=== PATIENT | male | born 1960 | race Caucasian/White ===

== ENCOUNTER 2016-06-24 20:00 | Inpatient (IN) | payer OTHER ==
[~2016-06-24] VITALS: Ht 180.3 cm; Wt 106.5 kg
--- NOTE | ~2016-06-24 | ECH ---
Transthoracic Echocardiography Report (TTE) Demographics Patient Name REBA GUZMAN Date of Study 06/25/2016 Patient Number [id number] Visit Number [id number] Date of 1960 Room Number 411 Accession Number [id number] Gender Male Age 55 year(s) Referring Neil RIVERA Law Tutor Elyssa Chen [facility] Physician Virgilio Physician Interpreting Ammy Bajwa Assistant Laboratory Director Physician Supervising Ordering Physician Neil Poole MD/P Nurse Stress Costumer Assistant Conclusions Contractility Score Summary Normal Left Ventricular contractility was noted. Summary Technically adequate exam. The estimated left ventricular ejection fraction is 60%. Mild concentric left ventricular hypertrophy. Diastolic assessment reveals Grade I diastolic dysfunction. The ascending aorta appears mildly dilated. The maximum diameter measures 4.2 cm. No significant valvular abnormalities. Procedure Type of Study TTE procedure:Echo Complete SF. Procedure Date Date: 06/25/2016 Start: 08:40 AM Technical Quality: Adequate visualization Indications:Hypertension. Additional Indications:NSTEMI Appropriate Use Criteria: 9 Height: 71 inches Weight: 238 pounds BSA: 2.27 m Rhythm: NSR HR: 82 bpm BP: 130/94 mmHg Allergies - No known allergies. M-Mode/2D Measurements LV Diastolic Dimension: 4.35 cm LV Systolic Dimension: 2.85 cm LV Septum Diastolic: 1.16 cm LV PW Diastolic: 1.14 cm AO Root Dimension: 3.65 cm Cardiac Output: 5.63 l/min LA Dimension: 3.38 cm Cardiac Index: 2.48 l/min*m RV Diastolic Dimension: 3.78 cm LA volume index: 15 ml/m LVOT: 2.26 cm LVOT VTI: 17.12 cm RV Base: 2.9 cm LV Stroke volume: 68.64 ml RV Mid: 1.6 cm LV Stroke volume index: 30.24 ml/m TAPSE: 2.4 cm TDI-S': 14 cm/s Doppler Measurements AV Peak Velocity: 1.1 m/s MV Peak E-Wave: 0.41 m/s AV Peak Gradient: 4.84 mmHg MV Peak A-Wave: 0.59 m/s AV Mean Gradient: 2.82 mmHg MV E/A Ratio: 0.7 LVOT Peak Velocity: 0.93 m/s MV P1/2t: 98.1 msec AV Area (Continuity):3.51 cm MV Deceleration Time: 364.7 msec MV Area (PHT): 2.24 cm PV Peak Velocity: 1.16 m/s E' Septal Velocity: 0.06 m/s PV Peak Gradient: 5.39 mmHg E' Lateral Velocity: 0.07 m/s A' Septal Velocity: 0.1 m/s A' Lateral Velocity: 0.1 m/s RA Area: 12.82 cm Findings Left Ventricle The left ventricle is normal in size . Mild concentric left ventricular hypertrophy. Diastolic assessment reveals Grade I diastolic dysfunction. Right Ventricle Normal right ventricle structure and function. Left Atrium Normal left atrial size. Right Atrium Normal right atrial size. Mitral Valve Normal mitral valve structure and function. Trivial mitral regurgitation by color Doppler. Aortic Valve Normal aortic valve structure and function. Tricuspid Valve Normal tricuspid valve structure and function. Trivial tricuspid regurgitation by color Doppler. Insufficient jet to calculate pulmonary pressures. Pulmonic Valve Normal pulmonic valve structure and function. Pericardial Effusion No evidence of pericardial effusion. Miscellaneous The ascending aorta appears mildly dilated. The maximum diameter measures 4.2 cm. Pleural Effusion No evidence of pleural effusion. Contractility Score LV regional wall motion:(0-Non visualized 1-Normal 2-Hypokinesis 3-Akinesis 4-Dyskinesis 5-Aneurysm) Signature
--- NOTE | ~2016-06-24 | CATH ---
Cardiac Diagnostic + PCI Report Demographics Patient Name MEGAN Preston Gender Male Date of 1960 Age 55 year(s) Patient Number [id number] Date of Study 06/25/2016 Visit Number [id number] Room Number 411 Corporate ID Ht 180.34 cm Wt 107.95 kg Accession Number [id number] BSA 2.27 m kg/m Referring Paulie Prado Primary Physician Physician Ammy Bajwa MD Performing Ammy Yong R Secondary Physician Physician Diagnostic Fruehling Yong R Assisting Physician Physician Interventional Fruehling Yong R Physician Order Entry Specialist Physician MD Findings and Conclusions Diagnostic Findings and Conclusion Single vessel CAD -95%, thrombotic prox LAD with PENNY II flow -70% Mid LAD Normal Circ and RCA Diagnostic Recommendations Proceed with PCI of LAD Interventional Findings and Conclusion -Successful atherectomy and stenting of prox LAD with a 3.5 x 12mm Synergy SERENA to 0% residual and restorationist of PENNY III flow. -iFR of mid LAD = 0.89 Interventional Recommendations -Dual Anti-Platelet Therapy for at least 1 year. -Aggressive risk factor modification -Consider a stress test in the future to evaluate residual LAD disease. Procedure Description The patient was brought to the diagnostic cardiac catheterization laboratory in the fasting, non-sedated state. Informed consent was obtained in the written and verbal form after the risks and benefits were explained. The patient had no further questions and agreed to proceed. The planned puncture-incision site(s) were shaved and prepped with ChloraPrep and draped in the usual sterile manner. Conscious sedation, supplemental oxygen, and pain control medications were delivered by a registered nurse under physician guidance. Surface ECG rhythm, blood pressure measurement, and pulse oximetry were monitored throughout the procedure. Arterial access. The right radial access site was infiltrated with lidocaine. The vessel was entered with the Seldinger technique. A 6 Fr sheath was advanced into the vessel and used for catheter placement. Left heart catheterization. A FR4 catheter was advanced across the aortic valve to the left ventricle under fluoroscopic guidance. Resting hemodynamics were obtained. Selective left coronary angiography. A FL3.5 catheter was advanced into the left coronary vessel ostium under Fluoroscopic guidance. Contrast was injected by hand. Images were obtained in multiple projections. Selective right coronary angiography. Multiple catheters were attempted, including FR4, MPB2, and AL1. Finally, a Ultimate 1 catheter was advanced into the right coronary vessel ostium under fluoroscopic guidance. Contrast was injected by hand. Images were obtained in multiple projections. Arterial artery hemostasis was achieved. The patient was transferred to a regular nursing floor via cart accompanied by a nurse. The patient left the laboratory in stable condition. Diagnostic Cath Status: Urgent Interventional Cath Status: Urgent Procedure Procedure Type Diagnostic procedure:Angiography:, Coronary Angios /[facility] PCI procedure:Drug Eluting Coronary Stent:, LAD, Thrombectomy-Mechanical , Additional Imaging:, FFR/iFR:, Initial Vessel Indications: NSTEMI. The procedure was explained in detail to the patient. Risks, complications and alternative treatments were reviewed. Written consent was obtained. Medications Reviewed with Patient prior to Procedure. Complications: No Complication. Angiographic Findings Dominance: Right Cardiac Arteries and Lesion Findings LMCA: Normal (0% Stenosis). LAD: Abnormal. Lesion on Prox LAD: 95% stenosis 12 mm length reduced to 0%. Pre procedure PENNY II flow was noted. Post Procedure PENNY III flow was present. The guidewire cross was successful.The lesion showed evidence of thrombus presence.Culprit lesion. FFR + + + + !FFR !Stage/Medication !Dosage ! + + + + !0.89 ! ! ! + + + + Treatment results:Interventional treatment was successful. Devices used - PROWATER WIRE 0.014" X 180CM. Number of passes: 1. - CATH STENT SYNERGY 3.5 X 12. 1 inflation(s) to a max pressure of: 16 abby. Lesion on Mid LAD: 75% stenosis . Devices used - VERRATA. Number of passes: 1. LCx: Abnormal. Lesion on Prox CX: 30% stenosis . Lesion on 2nd Ob Laney: Mid subsection.40% stenosis . RCA: Normal (0% Stenosis). Coronary Tree Procedure Data Procedure Date Date: 06/25/2016Start: 09:34 AMEnd: 10:58 AM Entry Locations - Percutaneous access was performed through the Right Radial artery (Primary location). A 6 Fr sheath was inserted. Hemostasis was successfully obtained using a TR band. Closure Comments: 12 cc air in TR Band. Procedure Medications Order and Administration + + +---------+-------+ !Time !Medication !Dosage !Route ! + + +---------+-------+ !06/25/2016 !Fentanyl !25 mcg !I.V. ! !09:24 AM ! ! ! ! + + +---------+-------+ !06/25/2016 !Versed !1 mg !I.V. ! !09:24 AM ! ! ! ! + + +---------+-------+ 06/25/2016 !Oxygen !2 l/min !NC ! !09:29 AM ! ! ! ! + + +---------+-------+ !06/25/2016 !Fentanyl !25 mcg !I.V. ! !09:33 AM ! ! ! ! + + +---------+-------+ !06/25/2016 !Versed !1 mg !I.V. ! !09:33 AM ! ! ! ! + + +---------+-------+ !06/25/2016 !SF Radial Cocktail: 200mcg Nitro, 2.5 mg! !I.A. ! !09:38 AM !Verapamil, 5000u Heparin ! ! ! + + +---------+-------+ !06/25/2016 !Heparin (ACC_3) !3000 !I.V. ! !10:11 AM ! !units ! ! + + +---------+-------+ !06/25/2016 !Brilinta (Ticagrelor) (ACC_20) !180 mg !P.O. ! !10:12 AM ! ! ! ! + + +---------+-------+ !06/25/2016 !Heparin (ACC_3) !2000 !I.V. ! !10:31 AM ! !units ! ! + + +---------+-------+ !06/25/2016 !SF Post Radial Cocktail: 200mcg Nitro, ! !I.A. ! !10:43 AM !2.5 Verapamil ! ! ! + + +---------+-------+ !06/25/2016 !Sodium Chloride !10 ml !I.V. ! !12:17 PM ! ! ! ! + + +---------+-------+ Devices Used - ACATH 6F FR4 CATHETER 100CMwas used for:Right coronary angiography.Unable to cannulate the vessel. - A5F MPB2 diagnostic catheterwas used for:Right coronary angiography.Unable to cannulate the vessel. - ACATH 6FR FL3.5 CATHETER 100CMwas used for:Left coronary angiography. - ACATH 6FR AL1 CATHETER 100CMwas used for:Right coronary angiography.Unable to cannulate the vessel. - ACATH 6F ULTIMATE 1 CATHETERwas used for:Right coronary angiography. - AGUIDE CATHETER 6FR EBU 3.5 100CMwas used for:LAD Intervention. - AASAP ASPIRATION CATHETERwas used for:LAD Intervention. - ACATH 6F FR4 CATHETER 100CMwas used for:LV Pressures.Unable to cannulate the vessel. Contrast Material - Isovue [id number] ml - Isovue 79468 ml Fluoroscopy Time: Diagnostic: 19:00 minutes. Total: 19:00 minutes. Fluoroscopy Dose: Diagnostic: 2040 mGy. Total: 2040 mGy. Estimated Blood Loss: 20 ml. Medical History Allergies - No known allergies. Risk Factors The patient risk factors include:hypertension, family history of premature CAD, last creatinine: 1.3 mg/dl and creatinine clearance: 96.88 ml/min. Admission Data Admission Date: 06/24/2016 Admission Time: 08:00 PM Insurance Payors: None. Clinical Evaluation Leading to Procedure Diagnosed on 06/25/2016 07:45 AM. - The patient's CAD presentation was assessed as: Non-STEMI. - The patient's anginal syndrome during the past two weeks was assessed as: Class IV according to the [place] Cardi[employer] Classification System (CCS). Hemodynamics Condition: Rest O2 Consumption: Estimated: 277.12Heart Rate: 80 bpm Pressures (mmHg) +-----+ + !Site !Pressure ! +-----+ + !AO !89/64 (74) ! +-----+ + !LV !95/1 ,6 ! +-----+ + !AO !96/ (79) ! +-----+ + !LV !91/1 ,7 ! +-----+ + Valve Gradients and Areas + +---------+---------+---------+ +---------+ + !Valve !Peak !Mean !Area !Index !Flow !Source ! + +---------+---------+---------+ +---------+ + !Aortic !0 !0 ! ! ! ! ! + +---------+---------+---------+ +---------+ + !Aortic !0 !0 ! ! ! ! ! + +---------+---------+---------+ +---------+ + Shunts Oxygen Values O2 Capacity 209.44 O2 Consumption 277.12 Discharge Data Discharge Date: 06/26/2016 Hospital Status: Inpatient Signatures
--- NOTE | ~2016-06-24 | LETTER ---
ADMIT: 06/24/2016 RM/LOC: 411 [facility] MR#: [id number] [address] [place] [phone] MAE HARRIS [address] [place] [address] Letter SEX: M AGE: 55 : 1960 June 25, 2016 Zackary Wilson MD [address] [place] [phone] Re: MAE HARRIS Dear Shiva, Your patient, Mae Harris, underwent diagnostic left heart catheterization at [facility] today. As you recall yesterday, he presented with some mild chest discomfort. He really minimizes symptoms, but his cardiac biomarkers came back positive with, I believe, a troponin of 5. I got called by Johan late yesterday afternoon and he was transferred to [facility]. He was completely pain free and hemodynamically stable. His echo this morning shows preserved ejection fraction. We proceeded with coronary angiography this morning. He has single-vessel disease and he had a 95% very thrombotic stenosis of the proximal LAD with resultant PENNY-2 flow. There was moderate to severe disease in the mid portion up to 60% to 70%. We actually performed atherectomy of the proximal LAD and then I placed a 3.5 x 12 mm Synergy (drug-eluting stent) in the proximal LAD with no residual stenosis and druze of PENNY-3 flow. We also performed an IFR of the mid LAD to make sure that it was not hemodynamically significant. It was 0.89, which is right on the borderline, but given his age and the fact that we fixed the culprit, I decided not to ADMIT: 06/24/2016 RM/LOC: 411 [facility] MR#: [id number] [address] [place] [phone] MAE HARRIS [address] [place] [address] Letter SEX: M AGE: 55 : 1960 treat the mid portion. We will watch it over time. If all goes well, he will be discharged home tomorrow. He should remain on Brilinta and aspirin at least for the next year, and we will institute aggressive risk factor modification. If you have any questions or concerns, please do not hesitate to contact me. Sincerely, MD CARMELINA Farris/lucho /[id number] Johan Apodaca PA-C
--- NOTE | ~2016-06-24 | FD ---
ADMIT: 06/24/2016 RM/LOC: 411 [facility] MR#: [id number] [address] [phone] REBA GUZMAN [address] [place] [address] Final Diagnosis SEX: M AGE: 55 : 1960 ADMISSION DATE: 06/24/2016 DISCHARGE DATE: 06/26/2016 FINAL DIAGNOSES: 1. Non-ST elevated myocardial infarction. 2. Possible hypertension. 3. Premature family history of coronary artery disease. 4. Single-vessel coronary artery disease with 95% thrombotic proximal LAD with PENNY-2 flow and 60-70% mid LAD stenosis. 5. Status post successful atherectomy and stenting of the proximal LAD with a 3.5 x 12 mm Synergy stent to 0% residual and tenriism of PENNY-3 flow. FFR of the mid LAD of 0.89. Ongoing medical management recommended. 6. Preserved ejection fraction. PAO Foster / Yong Gimenez MD / modl JOB #: [id number] CC: Virgilio Trejo MD, Attending Physician Virgilio Trejo MD, Family Physician
--- NOTE | 2016-06-26 08:50 | HP ---
ADMIT: 06/24/2016 RM/LOC: 411 [facility] MR#: [id number] 26[address] [facility] [address] [place] [phone] MAE GUZMAN [address] [place] [address] History and Physical SEX: M AGE: 55 : 1960 DATE OF SERVICE: REASON FOR ADMISSION: Chest discomfort and elevated cardiac biomarkers. HISTORY OF PRESENT ILLNESS: Mae is a very nice, 55-year-old gentleman with no prior cardiac history. He was transferred last night from [place], after he had some chest discomfort yesterday morning and he was found to have elevated cardiac biomarkers. His only real cardiac risk factors are strong family history of premature coronary disease. His father at age 73 of a myocardial infarction, but he also had a brother at age 58 who of a massive IN. He denies ever being treated for hyperlipidemia or diabetes. He is a nonsmoker. He said he was just started on some blood pressure medications yesterday. He was feeling well until yesterday morning. He said he was in his usual state of health when he had just gotten out of the shower getting ready for the day when he began to have an odd sensation in his lower chest. He said he thought that it was his esophagus. He said it almost felt like he had a pill stuck in his lower esophagus. It was mild. There was no radiation of the discomfort and he denies any associated symptoms such as nausea, diaphoresis, or shortness of breath. He got dressed and went to work. 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 After a few minutes of work he said that he continued to have this discomfort in his chest, so went to the clinic at [place]. He was little hypertensive and started on valsartan and Norvasc. He was discharged, but they did draw lab work and his CKs and MB and troponin were all positive. His troponin was 5. He was called back later in the day to the emergency room and then transferred to [place]. He remains pain free. He is comfortable. He offers no complaints currently. ALLERGIES: THERE ARE NO KNOWN MEDICAL ALLERGIES. PAST MEDICAL HISTORY: Only illness is possible hypertension, but he was just started on medications yesterday. PAST SURGICAL HISTORY: He denies any surgical history. FAMILY HISTORY: His brother at age 58 of an IN and his dad had an IN at age 73. His mom at age 85, but he is not sure of the exact cause. No family history of diabetes, cancer, or strokes. SOCIAL HISTORY: He is . He does not have children. 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 He has never smoked. He drinks 4-5 alcoholic beverages 4-5 times a week. Drinks one soda a day. He does not follow a special diet. REVIEW OF SYSTEMS: GENERAL: Denies fever, chills, sweats, rash, or weight loss. He tires easily. ADMIT: 06/24/2016 RM/LOC: 411 [facility] MR#: [id number] [address] [phone] [place] [address] History and Physical SEX: M AGE: 55 : 1960 EYES: Denies double vision, blurred vision, cataracts, or glaucoma. ENT: Denies hearing loss or problems with nose, mouth or throat. PULMONARY: Denies cough, sputum production, asthma, emphysema or bronchitis. Denies fatigue upon awakening. Positive for snoring loudly, waking more than once a night. GASTROINTESTINAL: Denies heartburn or difficulty swallowing. No change in bowel habits. Denies dark or bloody stools. No history of ulcers, hiatal hernia, or gallbladder or liver disease. GENITOURINARY: Denies dysuria, hematuria, nocturia, urinary tract infection, or kidney stones. Denies history of renal insufficiency or failure. MUSCULOSKELETAL: Denies history of arthritis or gout. Denies muscle or joint pains. ENDOCRINE: Denies history of thyroid dysfunction or diabetes. HEMATOLOGIC: Denies history of anemia, easy bruising, or cancer. NEUROLOGIC: Denies chronic headaches, dizziness, syncope, stroke, seizures or numbness or tingling. PSYCHIATRIC: Denies history of mental illness or feelings of depression. PHYSICAL EXAMINATION: VITAL SIGNS: His blood pressure is 130/94, pulse is 68, respirations 16. He is afebrile. O2 sats are 97% on room air. SKIN: Hissop, warm and dry. EYES: Sclerae clear. No xanthelasmas. ENT: Oral mucosa is pink and moist. No jugular venous distention or carotid bruits. CHEST: Respirations are even and unlabored. Lungs are clear to auscultation. HEART: Regular rate and rhythm. Normal S1, S2. No murmurs, rubs or gallops. Little bit distant. ABDOMEN: Soft and nontender. Obese and mildly protuberant with a small umbilical hernia. MUSCULOSKELETAL: Gait is normal. EXTREMITIES: Peripheral pulses palpable. No clubbing, cyanosis or edema. PSYCHIATRIC: Alert and oriented. Mood and affect are appropriate. LABORATORY AND X-RAY DATA: A 12-lead EKG shows sinus rhythm with nonspecific ST changes. There is no ST elevation, and no obvious ischemic EKG changes. Sodium 140, potassium 3.9, BUN 19, creatinine 1.3. Glucose is 101. Total cholesterol 195, triglycerides 159, HDL is 55, and LDL is 108. His troponin is 6.75 this morning. White count is 8.3 with a hemoglobin of 15.4 and platelet count 276,000. ASSESSMENT: 1. Non ST elevation - acute coronary syndrome. 2. Possible hypertension. 3. Premature family history of coronary disease. RECOMMENDATIONS: Although his symptoms are a bit atypical and completely resolved, he has high risk features with his positive cardiac biomarkers. ADMIT: 06/24/2016 RM/LOC: [address] [place] [address] MR#: [id number] 2620 [facility] [address] [place] [phone] MAE GUZMAN [address] [place] [address] History and Physical SEX: M AGE: 55 : 1960 Ultimately, I recommended left heart catheterization and coronary angiography for definitive evaluation. I did discuss the procedure with him including the potential risk and benefits. Potential risks including, but not limited to, bleeding or vascular trauma, IN, CVA, renal failure, and even a small possibility of . We will do an echo this morning to assess his LV function. He has been started on appropriate medications including his IV heparin, aspirin, statin, and beta-soniya therapy. He is hemodynamically stable currently. We will plan on proceeding with his heart catheterization later this morning. Yong Gimenez MD/ lucho JOB #: [id number] CC: Virgilio Trejo, Attending Physician Virgilio Trejo, Family Physician NACHO Chavez MD
[2016-06-27] MEDS ORDERED: ASA CHILDREN'S81 MG PO (09:23)
[2016-06-27] MEDS ORDERED: BRILINTA90 MG PO (09:23)
[2016-06-27] MEDS ORDERED: DIOVAN160 MG PO (09:24)
[2016-06-27] MEDS ORDERED: COREG DPS6.25 MG PO (09:24)
[2016-06-27] MEDS ORDERED: LIPITOR DPS40 MG PO (09:24)
== END 2016-06-26 11:43 | disposition home or self-care (01) | DRG 247 ==
LOC: 4PCU 20:00
PROVIDERS: ADMIT Internal Medicine
DX: I21.4 Non-ST elevation (NSTEMI) myocardial infarction (principal); I10 Essential (primary) hypertension; I25.10 Atherosclerotic heart disease of native coronary artery without angina pectoris; Z82.49 Family history of ischemic heart disease and other diseases of the circulatory system